=== PATIENT | female | born 1975 | race African-American/Black ===

== ENCOUNTER 2024-09-30 08:05 | Outpatient (RCR) | payer OTHER, SELFPAY ==
[2024-09-30 08:20] VITALS: BMI 40.3
[2024-09-30 08:25] VITALS: BMI 40.3
--- NOTE | 2024-09-30 11:57 | PCDIET ---
[facility]NT Consult completed.
== END 2024-12-20 08:45 | disposition home or self-care (01) ==
LOC: ANHDMC 08:05
DX: Z78.9 Other specified health status (principal); Z71.3 Dietary counseling and surveillance
CPT/HCPCS: 97802